=== PATIENT | female | born 1985 | race Caucasian/White ===

== ENCOUNTER → 2020-04-23 11:21 | Outpatient (BNVA) | payer OTHER, SELFPAY | PROVIDERS: Visit Provider Family Medicine | DX: Z20.822 Contact with and (suspected) exposure to COVID-19 (principal) | CPT/HCPCS: 87635 ==

== ENCOUNTER 2023-03-19 12:39 | Outpatient (CLI) | payer OTHER, SELFPAY | END 2023-03-19 12:40 | disposition home or self-care (01) | PROVIDERS: PCP Family Medicine; Visit Provider Family Medicine | DX: J42 Unspecified chronic bronchitis (principal) | CPT/HCPCS: 94010; 94726; 94729 ==

== ENCOUNTER 2023-06-17 20:00 | Outpatient (CLI) | payer OTHER, SELFPAY | END 2023-06-17 20:01 | disposition home or self-care (01) | LOC: SLEEP 06-18 05:37 | PROVIDERS: PCP Family Medicine; Visit Provider Family Medicine | DX: G47.33 Obstructive sleep apnea (adult) (pediatric) (principal) | CPT/HCPCS: 95810 ==

== ENCOUNTER 2023-08-18 20:00 | Outpatient (CLI) | payer OTHER, SELFPAY | END 2023-08-18 20:01 | disposition home or self-care (01) | LOC: SLEEP 08-19 05:13 | PROVIDERS: PCP Family Medicine; Visit Provider Family Medicine | DX: G47.33 Obstructive sleep apnea (adult) (pediatric) (principal) | CPT/HCPCS: 95811 ==

== ENCOUNTER 2024-04-21 11:57 | Outpatient (CLI) | payer OTHER, SELFPAY ==
--- NOTE | 2024-04-21 12:04 | FL_ITS ---
WS: [id number] Exam: FL barium swallow modifd [id number] Date/Time of Exam: 04/21/2024 12:08 PM Reason For Exam: Oral dysphagia Fluoroscopy time: 3min [id number] minutes # of spot films: Modified barium swallow test was performed in conjunction with the speech therapy service. Oropharyngeal phase of swallowing was normal. The patient tolerated all consistencies of barium mixtu re foodstuffs without aspiration or penetration. A barium tablet was administered and became lodged n ear the gastroesophageal junction. It took several swallows of liquid and pudding to propel the table t into the stomach. This could be secondary to a stricture or other abnormality at the GE junction. FL/FL barium swallow modifd [id number] IMPRESSION: 1. No aspiration or penetration identified. 2. When the patient swallowed a barium tablet it became lodged at the GE juncti on. Several swallows of liquid and pudding were needed to propel the tablet int o the stomach. A partial obstruction at the GE junction is not excluded. A conv entional barium esophagram is suggested for follow-up.
== END 2024-04-21 11:58 | disposition home or self-care (01) ==
PROVIDERS: PCP Family Medicine; Visit Provider Family Medicine
DX: Z01.89 Encounter for other specified special examinations (principal); R93.89 Abnormal findings on diagnostic imaging of other specified body structures
CPT/HCPCS: 74230; 92611

== ENCOUNTER → 2024-05-25 10:50 | Outpatient (BNVA) | payer OTHER, SELFPAY | PROVIDERS: PCP Family Medicine; Visit Provider Surgery | DX: R13.10 Dysphagia, unspecified (principal); R03.0 Elevated blood-pressure reading, without diagnosis of hypertension | CPT/HCPCS: 99204 ==

== ENCOUNTER 2024-06-17 14:42 | Outpatient (CLI) | payer OTHER, SELFPAY ==
--- NOTE | 2024-06-17 14:44 | CTR_ITS ---
PROCEDURE INFORMATION: Exam: CT Chest With Contrast; Diagnostic Exam date and time: 06/17/2024 3:11 PM Age: 38 years old Clinical indication: Abnormal findings; Abnormal radiologic exam of lung or chest; Mediastinal mass, esophageal stricture, abn barium swallow. Whooping cough as child; Additional info: Mediastinal mass/dysphagia TECHNIQUE: Imaging protocol: Diagnostic computed tomography of the chest with contrast. Radiation optimization: All CT scans at this facility use at least one of these dose optimization techniques: automated exposure control; mA and/or kV adjustment per patient size (includes targeted exams where dose is matched to clinical indication); or iterative reconstruction. Contrast material: OMNI 350; Contrast volume: 100 ml; Contrast route: INTRAVENOUS (IV); COMPARISON: RF FL barium swallow modifd 65924 04/21/2024 12:07 PM RADIATION DOSE METRICS: Total DLP (mGy-cm): 542.41 FINDINGS: Lungs: Unremarkable. No consolidation. No masses. Pleural spaces: Unremarkable. No pneumothorax. No pleural effusion. Heart: Unremarkable. No cardiomegaly. No pericardial effusion. Esophagus: Mild circumferential distal esophageal wall thickening. Lymph nodes: Unremarkable. No enlarged lymph nodes. Vasculature: Unremarkable. No aortic aneurysm. Kidneys: Small left renal stone. No hydronephrosis Bones/joints: No acute fracture. Soft tissues: Unremarkable. CT/CT chest w con* [id number] IMPRESSION: 1. No acute cardiopulmonary abnormality. 2. Circumferential distal esophageal wall thickening. Correlate for esophagitis. Consider direct visualization with endoscopy given abnormal barium swallow study.
[2024-06-17] MEDS: iohexol 350 mg/mL 500 mL Btl (per mL) IV (15:48)
== END 2024-06-17 14:43 | disposition home or self-care (01) ==
PROVIDERS: PCP Family Medicine; Visit Provider Family Medicine
DX: Z01.89 Encounter for other specified special examinations (principal); K22.89 Other specified disease of esophagus; N20.0 Calculus of kidney
CPT/HCPCS: 71260

== ENCOUNTER 2024-06-23 10:55 | Day surgery (SDC) | payer OTHER, SELFPAY ==
[2024-06-23 11:05] VITALS: BP 128/84; PULSE 65; RESP 16; TEMP 36.7; O2SAT 99; BMI 26.2
--- NOTE | 2024-06-23 11:09 | W.PM.OPSUD ---
Surgery/Procedure H&P Update DATE OF PROCEDURE: June 23, 2024 DATE H&P PERFORMED: 05/25/24 H&P UPDATE INFORMATION: I have reviewed H&P completed within last 30 days, I have examined patient prior to procedure, No changes to prior documentation, Changes to prior documentation as noted here and Risks and benefits of the procedure reviewed PLANNED PROCEDURE: Operation Date: 06/23/24 12:10 Proposed Procedures p EGD Dilation W/ Balloon 02127 R13.10(Not Applicable) - Zaid Rodriguez MD
--- NOTE | 2024-06-23 11:20 | P.ANESASSM_ITS ---
Pre-Anesthetic Assessment Height/Weight: Height 1.93 m Weight 97.522 kg Preop Diagnosis: dysphagia Operation Date: 06/23/24 12:10 Proposed Procedures p EGD Dilation W/ Balloon 30452 R13.10(Not Applicable) - Zaid Rodriguez MD Was Beta Quiana taken within 24 hours: N/A Was Clonidine taken within 24 hours: N/A Last intake: Intake Last Liquid Date 06/22/24 Last Liquid Time 23:30 Last Solid Date 06/22/24 Last Solid Time 23:30 Social No alcohol and No tobacco Exam alert, oriented x 3, clear to auscultation bilaterally and regular rate & rhythm Airway Submandibular: within normal limits Cervical ROM: within normal limits Mallampati: Class II Dentition: full History/ROS No significant history except as noted and No significant complaints Pulmonary None reported CV/HEM None reported None reported Hepatic None reported GI None reported Metabolic None reported Musc/skel None reported Neuropsych None reported Anesthetic Plan ASA status: 1 Anesthesia: Anesthesia Evaluation and MAC Risk of > 500 ml blood loss (7ml/kg in children): No Medications/Allergies Home Medications ?Medication ?Instructions ?Recorded ?Confirmed ?Last Taken ?Type No Known Home Medications 05/25/24 04/0 06/14 Unknown History Allergies Allergy/AdvReac Type Severity Reaction Status Date / Time No Known Allergies Allergy Verified 06/23/24 11:10 [facility] Anesthesia Social History Smoking and tobacco/nicotine status: never used tobacco/nicotine Data Anesthesia Cardiac Studies: No Data to Display
--- NOTE | 2024-06-23 11:26 | PC.NURSE ---
PT BELONGINGS SECURED IN LOCKER
[2024-06-23 11:47] VITALS: BP 125/96; PULSE 90; RESP 18; TEMP 36.4; O2SAT 98
[2024-06-23 12:00] VITALS: BP 121/90; PULSE 74; RESP 16; O2SAT 98
[2024-06-23 12:10] VITALS: BP 120/70; PULSE 75; RESP 16; O2SAT 100
--- NOTE | 2024-06-23 12:20 | ANE.PACU2 ---
Inpatient post-anesthesia follow up: Airway intact: Yes Vital signs: Temperature 97.5 F Pulse Rate 75 Respiratory Rate 16 Blood Pressure 120/70 Pulse Oximetry 100 Oxygen Delivery Me thod Room Air Oxygen Flow Rate Fraction of Inspir ed Oxygen Hydration adequate: Yes Nausea and vomiting: No Pain level: 1 Mental status: Baseline
== END 2024-06-23 12:20 | disposition home or self-care (01) ==
PROVIDERS: PCP Family Medicine; Visit Provider Surgery
DX: K22.2 Esophageal obstruction (principal); K44.9 Diaphragmatic hernia without obstruction or gangrene; K29.80 Duodenitis without bleeding; K29.50 Unspecified chronic gastritis without bleeding; K21.00 Gastro-esophageal reflux disease with esophagitis, without bleeding
CPT/HCPCS: 43239; 43249; 88305; 88342; J2704

== ENCOUNTER → 2024-07-13 08:05 | Outpatient (BNVA) | payer OTHER, SELFPAY | PROVIDERS: PCP Family Medicine; Visit Provider Surgery | DX: Z09 Encounter for follow-up examination after completed treatment for conditions other than malignant neoplasm (principal) | CPT/HCPCS: 99213 ==